=== PATIENT | female | born 1985 | race American Indian/Alaskan Native ===

== ENCOUNTER 2017-03-21 10:48 | Outpatient (CLI) | payer MEDICAID ==
[2017-03-21] MEDS ORDERED: LACTATED RINGERS 2,000 ML ONE (10:59)
--- NOTE | 2017-03-21 11:08 | History and Physical Report ---
History of Present Illness Date of examination: 03/21/17 Date of admission: 03/21/2017 Chief complaint: Here for cerclage 31 yo [id number] with hx cervical incompetence. This preg at 13wk 3 d now. Patient was informed of risks of chorioamnionitis, PPROM, bleeding, labor and preg loss by [facility] and reinforced by me today. Preg #1 vag at 36 wk 6#, #2 c/s for FTP at term after cerclage, #3 1st or 2nd tri AB, cerclage planned but not done. Has Hx hypertension but on no meds now and is normotensive at present. History of present illness: Remainder of H&P from recent Missed Period Visit and confirmed today OB Intake Ethnicity: Vital Signs Height: 64 in. Weight (lb): 156 BMI: 26.8 BP: 116/ 66 mm Hg Ur. Protein: Trace Ur. Glucose: Negative Chief Complaint/Current Status: c/o missed period......................ernestinarcia pt sts she started bleeding over the weekend and went o [facility]...............igarcia Pt reports u/s at ED 02/05/17 agreed with LMP, she reports they saw heart beat and bleeding stopped after visit. needs DIE FITTER plan, will have patientf/u 2 weeks for u/s and IOB labs. Plan to refer to [facility] if viable d/t Menstrual History Regularity: regular Menses every: 28 days Duration: 3 LMP: 12/17/2016 LMP reliability: definite LMP character: normal test type: urine test Date: 02/07/2017 Planned ? no EDC Calculations LMP: 09/23/2017 Past History : 4 Term Births: 2 Premature Births: 0 Living Children: 2 Para: 2 Mult. Births: 0 Prev : 0 Prev. attempt? 0 Aborta: 1 Elect. Ab: 0 Spont. Ab: 1 Ectopics: 0 # 1 Delivery date: 2006 Weeks Gestation: term labor: no Delivery type: Delivery location: [place] Sex: Female weight: 6# Comments: No complications # 2 Delivery date: 2011 Weeks Gestation: term labor: no Delivery type: Delivery location: [place] Sex: Female weight: 6# Comments: cerclage palced @ 4months, FTP after 4 days in labor # 3 Delivery date: 2013 Weeks Gestation: ??20?? Delivery type: SAB Delivery location: [place] Infant Sex: Male weight: ?? 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 No ETOH/Drugs/Smoking Infection History Hx of STD: none HIV Risk Eval: no Hepatitis B Risk Eval: low risk Personal hx. of genital herpes: no Partner hx. of genital herpes: no Rash, Viral, or Febrile illness since last LMP? no Varicella/Chicken Pox Status: Previous Disease TB Risk: no Genetic History Congenital Heart Defect: Mom: no Dad: no Nicole Disease: Mom: no Dad: no Thalassemia Mom: no Dad: no Neural Tube Defect Mom: no Dad: no Down's Syndrome Mom: no Dad: no Carlos-Sachs Mom: no Dad: no Sickle Cell Disease/Trait Mom: yes Dad: no Comments: mother +SST, FOC NEG Hemophilia Mom: no Dad: no Muscular Dystrophy Mom: no Dad: no Cystic Fibrosis Mom: no Dad: no Lanier Chorea Mom: no Dad: no Mental Retardation Mom: no Dad: no Fragile X Mom: no Dad: no Other Genetic/Chromosomal Disorder Mom: no Dad: no Child w/other defect Mom: no Dad: no Enviromental Exposures Xray Exposure: no Medication, drug, or alcohol use since LMP: no Chemical/Other Exposure: no Exposure to Cat Liter: no Hx of Parvovirus (Fifth Disease): no Occupational Exposure to Children: none Active Medications (reviewed today): None Current Allergies (reviewed today): No known allergies Laboratory Results Date/Time Collected: 02/07/2017 Routine Urinalysis Protein: Trace Glucose: Negative Urine HCG: positive Review of Systems General Denies fever, chills, sweats, anorexia, fatigue, weakness, malaise, weight loss and sleep disorder. Denies nausea, vomiting, headache, swelling of legs, abdominal pain, vaginal discharge, vaginal bleeding and contractions. Denies vaginal discharge, incontinence, dysuria, hematuria, urinary frequency, amenorrhea, menorrhagia, abnormal vaginal bleeding, pelvic pain, genital sores, decreased libido, painful periods, painful sex, urinary urgency, hot flashes, vaginal dryness, vaginal itching and vaginal odor. CV Denies chest pains, palpitations, syncope, dyspnea on exertion, orthopnea, PND and peripheral edema. Resp Denies cough, dyspnea at rest, excessive sputum, hemoptysis, wheezing and pleurisy. GI Denies nausea, vomiting, diarrhea, constipation, change in bowel habits, abdominal pain, melena, hematochezia, jaundice, gas/bloating, indigestion/ heartburn, dysphagia and odynophagia. Endo Denies cold intolerance, heat intolerance, polydipsia, polyphagia, polyuria and unusual weight change. Breast Denies left breast lump, right breast lump, nipple discharge, bloody discharge from nipple, breast pain, abnormal mammogram and breast enlargement. MS Denies back pain, joint pain, joint swelling, muscle cramps, muscle weakness, stiffness, arthritis, sciatica, restless legs, leg pain at night and leg pain with exertion. Derm Denies rash, itching, dryness and suspicious lesions. Neuro Denies paralysis, paresthesias, headache, seizures, tremors, vertigo, transient blindness, frequent falls, frequent headaches and difficulty walking. Psych Denies depression, anxiety, irritability and mood swings. Eyes Denies blurring, diplopia, irritation, discharge, vision loss, eye pain and photophobia. ENT Denies earache, ear discharge, tinnitus, decreased hearing, nasal congestion, nosebleeds, sore throat and hoarseness. Allergy Denies urticaria, allergic rash, hay fever and recurrent infections. Heme Denies abnormal bruising, bleeding and enlarged lymph nodes. 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 Vulva/Vagina: No lesions, normal BUS, normal rugae Cervix: No lesions; no cervical motion tenderness Uterus: normal size and position, midline, mobile Fundal Ht: 7-8 Adnexae: no masses or tenderness Rectovaginal: no masses or tenderness Flowsheet View for Follow-up Visit Weight: 156 Blood pressure: 116 / 66 Urine protein: Trace Urine glucose: Negative Fundal height: 7-8 Medications and Allergies Active Meds: Active Medications Cefazolin Sodium (Ancef/Sterile Water 2 Gm/20 Ml) 2 gm in 20 mls @ 80 mls/hr IV PREOP NR PRN Reason: Protocol Lactated Ringer's (Lactated Ringers) 1,000 mls @ 125 mls/hr IV DIRECT LILA Lactated Ringer's (Lactated Ringers) 1,500 mls @ 2,250 mls/hr IV PREOP NR Results All other labs normal. Assessment and Plan - Patient Problems (1) Incompetent cervix during second trimester, antepartum Current Visit: Yes Status: Acute Plan to address problem: Here for cerclage today (2) Previous delivery, antepartum Current Visit: Yes Status: Acute
[2017-03-21] MEDS: LACTATED RINGERS 1,000 ML IV SCH ×2 (11:15→14:13)
--- NOTE | 2017-03-21 11:35 | Anesthesia Day of Surgery ---
Anesthesia Day of Surgery - Day of Surgery Patient Examined: Yes Patient H&P Reviewed: Yes Patient is NPO: Yes
--- NOTE | 2017-03-21 11:35 | Anesthesia Consultation ---
Anesthesia Consult and Med Hx Date of service: 03/21/17 - Airway Anesthetic Teeth Evaluation: Good ROM Head & Neck: Adequate Mental/Hyoid Distance: Adequate Mallampati Class: Class II - Pre-Operative Health Status ASA Pre-Surgery Classification: ASA2 Proposed Anesthetic Plan: Spinal - Additional Comments Anesthesia Medical History Comments: cervical incompetence
[2017-03-21 11:36] LABS: Hematocrit 40.9 % (30.3-42.9); Hemoglobin 13.8 gm/dl (10.1-14.3); Mean Corpuscular HGB Conc 34 % (30-34); Mean Corpuscular Hemoglobin 29 pg (28-32); Mean Corpuscular Volume 85 fl (79-97); Platelet Count 170 K/mm3 (140-440); Red Blood Count 4.84 M/mm3 (3.65-5.03); Red Cell Distribution Width 14.3 % (13.2-15.2); White Blood Count 9.9 K/mm3 (4.5-11.0)
[2017-03-21] MEDS ORDERED: LACTATED RINGERS 1,500 ML IV NR (12:00)
[2017-03-21] MEDS ORDERED: ANCEF/STERILE WATER 2 GM/20 ML 2 GM/20 ML SYRINGE IV NR (12:00)
[2017-03-21] MEDS ORDERED: BICITRA ONE (12:18)
[2017-03-21] MEDS ORDERED: PEPCID IV ONE (12:18)
[2017-03-21] MEDS ORDERED: ANCEF/STERILE WATER 2 GM/20 ML IV ONE (12:50)
[2017-03-21] MEDS ORDERED: PEPCID IV SCH (13:00)
[2017-03-21] MEDS ORDERED: BICITRA PO NR (13:00)
--- NOTE | 2017-03-21 13:23 | Operative Report ---
Operative Report Operative Report: Date of procedure: 03/21/2017 Pre-operative diagnosis: Intrauterine at 13 weeks, history of incompetent cervix, admitted for cerclage placement. Post-operative diagnosis: Same Procedure name(s): Obstetrical cervical cerclage in the early second trimester done with 2 sutures of #1 Prolene both knots tied at 12:00 Surgeon: Ida Vallecillo M.D. Clinical Business Analyst: GENA Anesthesia: Spinal Findings: Approximately 12-14 weeks size uterus by palpation. Normal-appearing closed cervix, although the length of the cervix in the vagina was approximately 2 cm EBL: 10 mL Procedure in detail: Patient was taken to the operating room and in the sitting position a spinal anesthesia was placed. She was then placed in the supine and then the dorso-lithotomy position in the [facility]. She was prepped and draped externally with chlorhexidine. There was some vomiting. She exhibited stress urinary incontinence with this vomiting, as her bladder was apparently fairly full. A surgical timeout was taken with all members of the surgical team attentive. A Aguayo catheter was placed in a sterile fashion draining the bladder. The cervix was then exposed with retractors and the anterior lip was grasped with a ring forceps to 1 click. The first stitch was taken circumferentially in a counterclockwise order from 12-9-6-3-12 and then tied at 12:00 with 8-10 knots. Using a small amount of traction on the initial stitch. A second stitch was placed just superior to the first stitch. Stitches could not be placed any higher because of the reflection of the vagina and the reflection of the bladder. A second stitch was then tied in the same fashion, also at 12:00. A finger was placed at the external os to be sure that it was completely closed with both closures. There was only a small amount of bleeding and this was mopped clean with a 4 x 4. There was only minimal additional bleeding. The patient was then placed back into the supine position and was discharged to the PACU in good condition with minimal vaginal bleeding and a Aguayo catheter draining clear urine. Estimated blood loss less than 10 mL. Instruments, sponge and lap count correct 3.
[2017-03-21] MEDS ORDERED: PROCARDIA*For Tocolysis only PO ONE ×2 (13:34→14:00)
[2017-03-21] MEDS ORDERED: LACTATED RINGERS 1,000 ML IV SCH (14:00)
[2017-03-21] MEDS ORDERED: TYLENOL PO PRN (14:35)
[2017-03-21 21:29] VITALS: BP 113/73
== END 2017-03-21 10:49 | disposition home or self-care (01) ==
LOC: LDOR 10:48 → LD 10:50 → LDOR 11:08 → EDSTATUS 11:30
PROVIDERS: ATTEND Obstetrics & Gynecology
DX: O34.32 Maternal care for cervical incompetence, second trimester (principal); Z3A.14 14 weeks gestation of pregnancy; O16.2 Unspecified maternal hypertension, second trimester
CPT/HCPCS: 36415; 59320; 85027; 86850; 86900; 86901; J0690; J7120

== ENCOUNTER 2017-09-08 18:45 | Outpatient (CLI) | payer MEDICAID ==
[2017-09-08 21:02] VITALS: BP 123/81
[2017-09-08] MEDS ORDERED: LACTATED RINGERS 1,000 ML IV SCH (21:43)
[2017-09-08] MEDS ORDERED: LACTATED RINGERS 1,000 ML ONE (21:46)
--- NOTE | 2017-09-09 09:51 | Ultrasound Report ---
BIOPHYSICAL PROFILE: INDICATION: Gestational diabetes mellitus, HTN. COMPARISON: None similar. TECHNIQUE: Transabdominal ultrasound with Doppler interrogation. 2 - breathing movements 2 - movements 2 - posture and tone 2 - Qualitative amniotic fluid volume 8 - TOTAL SCORE OF POSSIBLE 8 Heart Rate (bpm) 135
--- NOTE | 2017-09-09 09:53 | Ultrasound Report ---
OB LIMITED INDICATION: GDM, HTN COMPARISON: None similar at this institution. TECHNIQUE: Transabdominal grayscale ultrasound with Doppler interrogation. Gestation: Brand Position: Cephalic Amniotic Fluid: WNL (7-24 cm) JOSIAH = 9.6 cm Heart Rate: 137 BPM
== END 2017-09-08 22:51 | disposition home or self-care (01) ==
LOC: TRG 18:45
PROVIDERS: ATTEND Obstetrics & Gynecology
DX: O47.03 False labor before 37 completed weeks of gestation, third trimester (principal); Z3A.34 34 weeks gestation of pregnancy
CPT/HCPCS: 76815; 76819; 96360; J7120

== ENCOUNTER 2017-09-14 15:38 | Outpatient (CLI) | payer MEDICAID ==
[2017-09-14 15:56] VITALS: BP 142/82
== END 2017-09-14 16:52 | disposition home or self-care (01) ==
LOC: TRG 15:38
PROVIDERS: ATTEND Obstetrics & Gynecology
DX: O47.1 False labor at or after 37 completed weeks of gestation (principal); Z3A.38 38 weeks gestation of pregnancy
CPT/HCPCS: 59025

== ENCOUNTER 2017-09-17 05:51 | Inpatient (IN) | payer MEDICAID ==
[2017-09-17] MEDS ORDERED: BRETHINE SUB-Q ONE (06:21)
[2017-09-17] MEDS: LACTATED RINGERS 1,000 ML IV SCH ×3 (06:34→08:41)
[2017-09-17] MEDS ORDERED: ZOFRAN IV ONE (07:41)
[2017-09-17] MEDS ORDERED: REGLAN IV ONE (08:17)
[2017-09-17] MEDS ORDERED: PEPCID IV ONE (08:17)
[2017-09-17] MEDS ORDERED: BICITRA PO ONE (08:17)
[2017-09-17 08:33] LABS: Basophils % (Auto) 0.3 % (0.0-1.8); Eosinophils % (Auto) 0.5 % (0.0-4.3); Hematocrit 31.4 % (30.3-42.9); Hemoglobin 10.8 gm/dl (10.1-14.3); Mean Corpuscular HGB Conc 35 % (30-34); Mean Corpuscular Hemoglobin 26 pg (28-32); Mean Corpuscular Volume 75 fl (79-97); Platelet Count 135 K/mm3 (140-440); Red Blood Count 4.17 M/mm3 (3.65-5.03); Red Cell Distribution Width 17.1 % (13.2-15.2)
[2017-09-17] MEDS ORDERED: LACTATED RINGERS 1,000 ML IV SCH (09:00)
[2017-09-17] MEDS ORDERED: PITOCin/NS 20 UNIT/1000ML DRIP 20 UNITS/1,000 ML BAG IV SCH ×2 (09:00→13:13)
[2017-09-17] MEDS ORDERED: ANCEF/STERILE WATER 2 GM/20 ML 2 GM/20 ML SYRINGE IV NR (09:00)
[2017-09-17] MEDS ORDERED: NARCAN 0.4 MG/1 ML IV PRN ×2 (09:01→13:13)
[2017-09-17] MEDS ORDERED: PHENERGAN PO PRN (09:01)
[2017-09-17] MEDS ORDERED: ZOFRAN IV PRN ×2 (09:01→13:13)
[2017-09-17] MEDS ORDERED: PHENERGAN PR PRN (09:01)
[2017-09-17] MEDS ORDERED: DILAUDID IV PRN ×2 (09:01→10:00)
--- NOTE | 2017-09-17 09:01 | Anesthesia Day of Surgery ---
Anesthesia Day of Surgery - Day of Surgery Patient Examined: Yes Patient H&P Reviewed: Yes Patient is NPO: Yes
--- NOTE | 2017-09-17 09:01 | Anesthesia Consultation ---
Anesthesia Consult and Med Hx Date of service: 09/17/17 - Airway Anesthetic Teeth Evaluation: Good ROM Head & Neck: Adequate Mental/Hyoid Distance: Adequate Mallampati Class: Class II Intubation Access Assessment: Good - Pulmonary Exam CTA: Yes - Cardiac Exam Cardiac Exam: No Murmur - Pre-Operative Health Status ASA Pre-Surgery Classification: ASA2 Proposed Anesthetic Plan: Spinal - Pulmonary Hx Asthma: No COPD: No Hx Pneumonia: No - Cardiovascular System Hx Hypertension: No - Central Nervous System Hx Seizures: No Hx Psychiatric Problems: No - Endocrine Hx Renal Disease: No Hx End Stage Renal Disease: No Hx Hypothyroidism: No Hx Hyperthyroidism: No - Hematic Hx Anemia: Yes Hx Sickle Cell Disease: No - Other Systems Hx Alcohol Use: Yes (social/ occasional pre-)
--- NOTE | 2017-09-17 09:08 | History and Physical Report ---
History of Present Illness Date of examination: 09/17/17 Date of admission: 09/17/17 05:52 History of present illness: Patient presented to labor and delivery complaints of contractions or nausea vomiting. Patient still with cerclage in place to have contractions every 3-5 minutes. Without resolution with the hydration patient did get a dose of terbutaline. Patient appears to be probable early active labor being admitted the for repeat section. Patient's course complicated by cervical incompetence which she received a cerclage and for gestational diabetes which is noncompliant with her perinatologist. Menstrual History Regularity: regular Menses every: 28 days Duration: 3 LMP: 12/17/2016 LMP reliability: definite LMP character: normal test type: urine test Date: 02/07/2017 Planned ? no EDC Calculations LMP: 09/23/2017 Past History : 4 Term Births: 2 Premature Births: 0 Living Children: 2 Para: 2 Mult. Births: 0 Prev : 0 Prev. attempt? 0 Aborta: 1 Elect. Ab: 0 Spont. Ab: 1 Ectopics: 0 # 1 Delivery date: 2006 Weeks Gestation: term labor: no Delivery type: Delivery location: [place] Infant Sex: Female weight: 6# Comments: No complications # 2 Delivery date: 2011 Weeks Gestation: term labor: no Delivery type: Delivery location: [place] Sex: Female weight: 6# Comments: cerclage palced @ 4months, FTP after 4 days in labor # 3 Delivery date: 2013 Weeks Gestation: ??20?? Delivery type: SAB Delivery location: [place] Infant Sex: Male weight: ?? 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 No ETOH/Drugs/Smoking Infection History Hx of STD: none HIV Risk Eval: no Hepatitis B Risk Eval: low risk Personal hx. of genital herpes: no Partner hx. of genital herpes: no Rash, Viral, or Febrile illness since last LMP? no Varicella/Chicken Pox Status: Previous Disease TB Risk: no Genetic History Congenital Heart Defect: Mom: no Dad: no Nicole Disease: Mom: no Dad: no Thalassemia Mom: no Dad: no Neural Tube Defect Mom: no Dad: no Down's Syndrome Mom: no Dad: no Carlos-Sachs Mom: no Dad: no Sickle Cell Disease/Trait Mom: yes Dad: no Comments: mother +SST, FOC NEG Hemophilia Mom: no Dad: no Muscular Dystrophy Mom: no Dad: no Cystic Fibrosis Mom: no Dad: no Callie Chorea Mom: no Dad: no Mental Retardation Mom: no Dad: no Fragile X Mom: no Dad: no Other Genetic/Chromosomal Disorder Mom: no Dad: no Child w/other defect Mom: no Dad: no Enviromental Exposures Xray Exposure: no Medication, drug, or alcohol use since LMP: no Chemical/Other Exposure: no Exposure to Cat Liter: no Hx of Parvovirus (Fifth Disease): no Occupational Exposure to Children: none Active Medications (reviewed today): None Current Allergies (reviewed today): No known allergies Past History Past Medical History: other (see HPI) Past Surgical History: other (see HPI) 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 (see HPI) Family/Genetic History: other (see HPI) Social history: other (see HPI) - Obstetrical History Expected Date of Delivery: 09/23/17 Actual Gestation: 39 Week(s) 1 Day(s) : 4 Para: 2 Hx # Term Pregnancies: 2 Number of Pregnancies: 0 Spontaneous Abortions: 1 Induced : 0 Number of Living Children: 2 Medications and Allergies Allergies Allergy/AdvReac Type Severity Reaction Status Date / Time No Known Allergies Allergy Verified 09/14/17 16:44 Home Medications Medication Instructions Recorded Confirmed Last Taken Type 19 Chewable 1 tab PO DAILY 03/21/17 09/14/17 1 Day Ago History Ferrous Sulfate [Feosol 325 MG tab] 325 mg PO BID #60 tablet 09/17/17 Unknown Rx Ibuprofen [Motrin 800 MG tab] 800 mg PO Q6H PRN #30 tablet 09/17/17 Unknown Rx oxyCODONE /ACETAMINOPHEN [Percocet 1 - 2 tab PO Q4H PRN #30 tablet 09/17/17 Unknown Rx 5/325 mg] Active Meds: Active Medications Lactated Ringer's (Lactated Ringers) 1,000 mls @ 999 mls/hr IV DIRECT LILA Last Admin: 09/17/17 08:41 Dose: 999 mls/hr Cefazolin Sodium (Ancef/Sterile Water 2 Gm/20 Ml) 2 gm in 20 mls @ 80 mls/hr IV PREOP NR PRN Reason: Protocol Stop: 09/17/17 23:59 Lactated Ringer's (Lactated Ringers) 1,000 mls @ 2,250 mls/hr IV PREOP LILA Stop: 09/18/17 09:27 Oxytocin/Sodium Chloride (Pitocin/Ns 20 Unit/1000ml Drip) 20 units in 1,000 mls @ 0 mls/hr IV TITR LILA PRN Reason: As Directed - Vital Signs Vital signs: Vital Signs Pulse BP 82 135/85 09/17/17 06:12 09/17/17 06:12 Temp Pulse Resp BP Pulse Ox 98.1 F 91 H 18 140/94 97 09/17/17 08:29 09/17/17 08:59 09/17/17 08:29 09/17/17 08:33 09/17/17 08:59 - Physical Exam Breasts: Positive: deferred Cardiovascular: Regular rate Lungs: Positive: Normal air movement Extremities: Positive: edema - Obstetrical FHR: category 1 Results Result Diagrams: 09/17/17 08:07 Abnormal lab results 09/17/17 Range/Units 08:07 MCV 75 L (79-97) fl MCH 26 L (28-32) pg MCHC 35 H (30-34) % RDW 17.1 H (13.2-15.2) % Plt Count 135 L (140-440) K/mm3 Seg Neutrophils % 78.0 H (40.0-70.0) % Seg Neutrophils # 8.6 H (1.8-7.7) K/mm3 All other labs normal. Assessment and Plan - Patient Problems (1) Active labor at term Current Visit: Yes Status: Acute Plan to address problem: Discuss the risks of the surgery including infection, bleeding possibly heavy enough to require a blood transfusion, possible damage to bowel, bladder or ureter. Her questions were answered. Patient understands and desires to proceed The patient was instructed/informed the following: (2) Incompetent cervix during second trimester, antepartum Current Visit: No Status: Acute Plan to address problem: Will remove cerclage (3) Previous delivery, antepartum Current Visit: No Status: Acute (4) Gestational diabetes Current Visit: Yes Status: Acute Qualifiers: Gestational diabetes mellitus control: diet-controlled Trimester: third trimester Qualified Code(s): O24.410 - Gestational diabetes mellitus in , diet controlled
[2017-09-17] MEDS ORDERED: MORPHINE ONE (09:10)
[2017-09-17] MEDS ORDERED: WATER FOR IRRIG STERILE IR ONE (09:25)
[2017-09-17] MEDS ORDERED: NACL 0.9% IR ONE (09:25)
[2017-09-17] MEDS ORDERED: ANCEF/STERILE WATER 2 GM/20 ML IV ONE (09:30)
[2017-09-17] MEDS ORDERED: fentaNYL-BUPIV 2 MCG/ML-0.125% 200 MCG/100 ML BAG EPIDURAL SCH (10:00)
[2017-09-17] MEDS ORDERED: TORADOL ONE (10:00)
[2017-09-17] MEDS ORDERED: SODIUM CHLORIDE FLUSH SYRINGE 10 ML IV NR ×2 (10:00→13:13)
--- NOTE | 2017-09-17 11:00 | Operative Report ---
Operative Report Operative Report: Date of procedure: 09/17/2017 Pre-operative diagnosis: Intrauterine at 39 weeks 1 day, cervical incompetence with cerclage in place, previous section and active labor Post-operative diagnosis: Same Procedure name(s): Removal of cervical cerclage and repeat low transverse section Surgeon: Jaime Lopez MD Bowling Ball Grader And Marker: Anesthesia: Spinal EBL: 700 mL Complications: None Findings: Cervix had done to the cerclage stitches with knots at the 12:00. Patient had normal uterus tubes and ovaries bilaterally had a very thin lower uterine segment with some scar tissue between the anterior abdominal wall and uterus. Female weight 7 lbs. 4 oz. Apgars 8 at 1 minute and 9 at 5 minutes Specimen(s): None Procedure: The patient was brought to the operating room. A spinal was placed without any complications. Patient was then placed in hanging stirrups speculum placed in the vagina findings as noted above. Denies each stitch were cut with scissors cerclage was easily removed. The patient was then placed in supine position. She was then placed in left lateral tilt. Prepped and draped in the usual sterile manner. After testing for adequate anesthesia level, a Pfannenstiel incision was made through her previous scar. This incision was taken down to the fascia. The fascia was then nicked in the midline. This incision was extended out laterally with Burns scissors. The fascia was then sharply and bluntly from the underlying rectus muscles. The rectus muscles were bluntly and sharply . The peritoneum was then entered with the numerical control operator's fingers. This incision was spread vertically with care not to damage the bladder below. Adhesions were then taken down sharply and bluntly. The bladder flap was then formed sharply and bluntly with Metzenbaum scissors. The Zev self-retaining tractor was then placed without any difficulty. A transverse incision was made in lower uterine segment. This incision was extended laterally with the operators fingers. The amniotic sac was then entered bluntly with the numerical control operator's fingers. The infant was delivered from the vertex position. Bulb suction on the mother's abdomen. Cord was double clamped and cut. The infant was then passed to the nursery personnel who were in attendance. The above scores were given by the nursery personnel. The placenta was then bluntly removed. The uterus was then externalized and wiped clean the remaining products. The uterine incision was closed in layers. The first incision was closed in a locking manner using 0 Vicryl. This was followed by imbricating stitch also with 0 Vicryl. This closure was hemostatic after placing additional [id number] sutures and cautery. Surgicel was also placed along the uterine incision after placing and abdomen.. The bladder flap was copiously irrigated and found to be hemostatic. The pelvis was copiously irrigated and found to be hemostatic. The uterus was then placed back to the patient's abdomen. The retractors were removed. The rectus muscles were inspected and found to be hemostatic. The fascia was then closed in a running manner using 0 Vicryl. This incision was hemostatic irrigation Bovie. The skin was reapproximated with 4-0 Vicryl subcuticularly. The patient tolerated procedure well. Her urine was clear. The was admitted to the well baby nursery. The patient was accompanied to recovery room in good condition. Instrument count correct 3
[2017-09-17] MEDS ORDERED: TUCKS PAD TP PRN (13:13)
[2017-09-17] MEDS ORDERED: ANUCORT-HC PR PRN (13:13)
[2017-09-17] MEDS ORDERED: NACL 0.9% 1000 ML 1,000 ML IV SCH (13:13)
[2017-09-17] MEDS ORDERED: MILK OF MAGNESIA PO PRN (13:13)
[2017-09-17] MEDS ORDERED: LANSINOH TP PRN (13:13)
[2017-09-17] MEDS: BENADRYL PO PRN (14:50)
[2017-09-17] MEDS: METHERGINE PO SCH ×2 (15:50→22:33)
[2017-09-17 16:04] LABS: Hemoglobin 7.8 gm/dl (10.1-14.3)
--- NOTE | 2017-09-17 17:12 | Event Note ---
Date: 09/17/17 Received a call from RN concerned about amount of vaginal bleeding that time ordered H&H and Methergine, examined the patient patient's fundus was firm and the bleeding has decreased her per nurse's assessment. Patient did have a drop in her hematocrit vital signs stable urine output has been adequate we will continue to monitor patient could have some increased vaginal bleeding due to removal of cerclage and some bleeding and at that time. My exam of the patient' s abdomen was soft uterus firm and only had small to moderate amount of bleeding on her pad. Patient has her 12 hour H&H schedule will check those results also. Patient was resting in bed breast-feeding the when I arrived in the room with no complaints
[2017-09-17] MEDS: TORADOL IV PRN (22:36)
--- NOTE | 2017-09-17 23:30 | Post Anesthesia Evaluation ---
- Post Anesthesia Evaluation Patient Participated: Yes Airway Patent: Yes Stable Respiratory Function: Yes Nausea/Vomiting: No Temp > 96.8F: Yes Pain Manageable: Yes Adequeate Hydration: Yes Anesthesia Complications: No
[2017-09-18 00:36] LABS: Hematocrit 22.3 % (30.3-42.9); Hemoglobin 7.5 gm/dl (10.1-14.3)
[2017-09-18] MEDS: ANCEF/NS 1 GM/50 ML 1 GM/50 ML BAG IV SCH ×2 (01:27→08:07)
[2017-09-18] MEDS: MYLICON PO PRN ×2 (01:56→23:09)
[2017-09-18] MEDS: METHERGINE PO SCH ×3 (06:00→23:10)
[2017-09-18] MEDS: BENADRYL PO PRN (06:01)
[2017-09-18] MEDS: TORADOL IV PRN (06:07)
[2017-09-18] MEDS: FEOSOL PO SCH (11:24)
[2017-09-18] MEDS: PRENATAL VITAMIN PO SCH (11:24)
[2017-09-18] MEDS: NORCO 5/325 PO PRN ×2 (11:47→17:18)
--- NOTE | 2017-09-18 12:13 | Progress Note ---
Assessment and Plan - Patient Problems (1) Active labor at term Current Visit: Yes Status: Acute (2) Incompetent cervix during second trimester, antepartum Current Visit: No Status: Acute (3) Previous delivery, antepartum Current Visit: No Status: Acute Plan to address problem: Postoperative day #1. Discuss operative findings with patient and questions answered. Patient without fever. Will ambulate in halls. We will continue routine postoperative care. Patient's postoperative hematocrit showed anemia. Patient is breast-feeding and desires Depo-Provera for post contraceptive (4) Gestational diabetes Current Visit: Yes Status: Acute Qualifiers: Gestational diabetes mellitus control: diet-controlled Trimester: third trimester Qualified Code(s): O24.410 - Gestational diabetes mellitus in , diet controlled Plan to address problem: We'll continue to monitor no medication needed as yet (5) Acute blood loss anemia Onset Date: ~09/17/17 Current Visit: Yes Status: Acute Plan to address problem: Discussed with the patient her anemia and indications for possible blood transfusion. Patient states she feels fine and denies any dizziness. Precautions given Subjective Date of service: 09/18/17 Patient Reports: Positive: no new complaints, feels better, still having pain, pain is less, tolerating liquids well, tolerating a regular diet, voiding w/o difficulty, no flatus, no bowel movement, afebrile. Negative: vomiting, shortness of breath, fever (patient denies any orthostatic symptoms) Objective Vital Signs - 12hr 09/18/17 09/18/17 09/18/17 01:15 04:55 08:40 Temperature 98.2 F 99.1 F 98.4 F Pulse Rate 93 H 107 H 86 Respiratory 18 18 18 Rate Blood Pressure 123/84 138/85 112/74 [Right] - General physical appearance well developed, well nourished, moderate pain - Respiratory normal respiratory effort - Abdomen soft, bowel sounds normal, distended, other (bandage clean and dry) - Neurologic normal coordination, normal sensation - Musculoskeletal normal gait - Psychiatric oriented to time, oriented to person, oriented to place, speech is normal, memory intact - Labs 09/18/17 00:20
[2017-09-18] MEDS: MOTRIN PO PRN (20:28)
[2017-09-19] MEDS: NORCO 5/325 PO PRN ×4 (03:52→21:14)
[2017-09-19] MEDS: METHERGINE PO SCH ×2 (05:43→17:05)
--- NOTE | 2017-09-19 06:41 | Progress Note ---
Assessment and Plan pt resting quietly No c/o voiced FF below umb Lochia small Dressing removed Pt became very upset Encouraged to ambulate in room, wear binder for support. Encouraged to shower. Day #2 s/p c/s Doing well P: continue pathway Advance as tolerated. Subjective - Subjective Date of service: 09/19/17 (pt sleeping) Patient reports: appetite normal, voiding normally, pain well controlled, ambulating normally [place]: in NICU Objective - Vital Signs Latest vital signs: Vital Signs Temp Pulse Resp BP 09/19/17 04:52 16 09/19/17 03:52 20 09/19/17 00:35 98.5 F 96 H 18 142/93 09/18/17 21:10 18 09/18/17 20:28 18 09/18/17 16:12 98.7 F 81 18 118/70 09/18/17 08:40 98.4 F 86 18 112/74 Intake and Output 09/18/17 09/18/17 09/19/17 14:59 22:59 06:59 Intake Total 240 480 240 Output Total 900 Balance -660 480 240 Intake: Oral 240 480 240 Output: Urine 900 Void 900 Other: Total, Intake Amount 120 240 120 Total, Output Amount 900 # Voids Void 1 1 1 - Exam Breasts: Present: normal Cardiovascular: Present: Regular rate Lungs: Present: Normal air movement Abdomen: Present: normal appearance, soft, normal bowel sounds Uterus: Present: normal, fundal height below umbilicus Extremities: Present: normal Deep Tendon Reflex Grade: Normal +2 Incision: Present: normal, dry, intact, dressed (dressing removed Pt very upset Stated it was very painful) - Labs Labs: Abnormal lab results 09/18/17 09/18/17 09/19/17 Range/Units 06:52 18:36 00:35 POC Glucose 106 H 112 H 164 H (70-105)
[2017-09-19] MEDS: MOTRIN PO PRN ×2 (07:55→16:58)
[2017-09-19] MEDS ORDERED: ZOFRAN PO PRN (11:00)
[2017-09-20] MEDS: MOTRIN PO PRN ×2 (00:11→09:55)
[2017-09-20] MEDS: METHERGINE PO SCH (00:11)
--- NOTE | 2017-09-20 06:40 | Discharge Summary ---
Providers - Providers Date of Admission: 09/17/17 05:52 Date of discharge: 09/20/17 (pt agrees with d/c ) Attending physician: SUJATHA PEDRO 09/17/17 13:13 Consult to [employer] [CONS] Routine Reason For Exam: Primary care physician: SUJATHA PEDRO Hospitalization Reason for admission: active labor, section Delivery: Procedure: repeat low transverse Episiotomy: none Laceration: none Incision: dry, intact Other procedures: none complications: none Discharge diagnosis: IUP at term delivered [place] baby: female (in NICU) Hospital course: uncomplicated repeat section Pt sleeping No c/o voiced VSS FF below umb Lochia scant Incision D&I Pt is asymptomatic anemia. Doing well s/p r c/s P: d/c today with instructions RTO 1 week postop care. RX provided @ d/c Condition at discharge: Fair Disposition: DC-01 TO HOME OR SELFCARE - Discharge Diagnoses (1) delivery delivered Status: Acute Comment: rto 1 week postop care Plan - Discharge Medications Prescriptions: Ferrous Sulfate [Feosol 325 MG tab] 325 mg PO BID #60 tablet Ibuprofen [Motrin 800 MG tab] 800 mg PO Q6H PRN #30 tablet PRN Reason: Pain oxyCODONE /ACETAMINOPHEN [Percocet 5/325 mg] 1 - 2 tab PO Q4H PRN #30 tablet PRN Reason: Pain, Moderate - Provider Discharge Summary Activity: routine, no sex for 6 weeks, no heavy lifting 4 weeks, no strenuous exercise Diet: routine Instructions: routine Additional instructions: [] Smoking cessation referral if applicable(refer to patient education folder for contact #) [] Refer to [facility]'s [facility] Booklet Call your doctor immediately for: * Fever > 100.5 * Heavy vaginal bleeding ( >1 pad per hour) * Severe persistent headache * Shortness of breath * Reddened, hot, painful area to leg or breast * Drainage or odor from incision. * Keep incision clean and dry at all times and follow doctor's instructions regarding bathing/showering - Follow up plan Follow up: SUJATHA PEDRO MD [Primary Care Provider] - 7 Days (Congratulations! Please call [phone] to schedule your postoperative visit in 1 week. Take medications as prescribed. Call with concerns.)
[2017-09-20 09:24] VITALS: BP 121/63
[2017-09-20] MEDS: NORCO 5/325 PO PRN (09:54)
[2017-09-20] MEDS: PRENATAL VITAMIN PO SCH (09:55)
[2017-09-20] MEDS: FEOSOL PO SCH (09:55)
== END 2017-09-20 16:10 | disposition home or self-care (01) | DRG 765 ==
LOC: TRG 05:51 → APU 05:52 → TRG 05:52 → OB 12:58
PROVIDERS: ADMIT Obstetrics & Gynecology; ATTEND Obstetrics & Gynecology
PROC: 10D00Z1 Extraction of Products of Conception, Low, Open Approach (ICD-10-PCS; principal; 2017-09-17)
PROC: 0UCC7ZZ Extirpation of Matter from Cervix, Via Natural or Artificial Opening (ICD-10-PCS; 2017-09-17)
DX: O34.211 Maternal care for low transverse scar from previous cesarean delivery (principal); O34.33 Maternal care for cervical incompetence, third trimester; D62 Acute posthemorrhagic anemia; N85.8 Other specified noninflammatory disorders of uterus; Z3A.39 39 weeks gestation of pregnancy; O24.419 Gestational diabetes mellitus in pregnancy, unspecified control
CPT/HCPCS: 36415; 82962; 85014; 85018; 85025; 86592; 86850; 86900; 86901; 99211; A6250; C1765; G0463; J0690; J1885; J2270; J2405; J2590; J2765; J3105; J7030; J7120; Q0162